=== PATIENT | female | born 1985 | race African-American/Black ===

== ENCOUNTER 2019-01-31 17:58 | Emergency (ER) | payer MEDICAID ==
[~2019-01-31] VITALS: Ht 165.1 cm; Wt 81.6 kg
[~2019-01-31 17:58] MED LIST: LOSA25TA25 PO
[2019-01-31] MEDS ORDERED: MORPHINE SULFATE 4 MG/ML, 1ML ONE (18:47)
[2019-01-31] MEDS ORDERED: ONDANSETRON 2MG/ML, 2ML ONE (18:47)
--- NOTE | 2019-01-31 18:58 | NUR ---
THIS IS 34Y F THAT COMES IN FOR RIGHT UPPER QUAD PAIN FOR 3 DAYS. PT STS PAIN GOT WORSE THIS EVENING 10/11. PT STS SHE HAS HAD NO DESIRE TO EAT FOR THE LAST THREE DAYS. PT DENIES FEVER AND VOMITING. PT CONNECTED TO MONITORS, VSS, CALL LIGHT IN REACH. SON AT BEDSIDE
[2019-01-31] MEDS ORDERED: SODIUM CHLORIDE FLUSH 10ML SYR IVF ONE (19:00)
[2019-01-31] MEDS ORDERED: ONDANSETRON 2MG/ML, 2ML IVPush ONE (19:00)
[2019-01-31] MEDS ORDERED: MORPHINE SULFATE 4 MG/ML, 1ML IVPush PRN (19:00)
--- NOTE | 2019-01-31 19:00 | NUR ---
PT UP TO RESTROOM FOR URINE SAMPLE AT THIS TIME
--- NOTE | 2019-01-31 19:12 | NUR ---
TASK RN: IV PLACED, LABS DRAWN AND PT TAKEN TO US. PT STATES ABLE TO WAIT FOR PAIN MEDS UNTIL AFTER IMAGING. PAIN FLUCTUATES AND IS LOW AT THIS TIME
[2019-01-31 19:22] LABS: MICROSCOPIC AUTO
[2019-01-31 19:22] LABS: BASOPHILS # (AUTO) 0.01 x10^3/uL (0-0.1); BASOPHILS % (AUTO) 0 % (0-1); EOSINOPHILS # (AUTO) 0.04 x10^3/uL (0-0.4); EOSINOPHILS % (AUTO) 1 % (1-7); LYMPHOCYTES # (AUTO) 0.84 x10^3/uL (1-3.4); LYMPHOCYTES % (AUTO) 10 % (22-44); MD NO; MEAN CORPUSCULAR HEMOGLOBIN 26.1 pg (27.0-34.8); MEAN CORPUSCULAR HGB CONC 32.2 g/dL (32.4-35.8); MEAN CORPUSCULAR VOLUME 81.2 fL (80-100); MEAN PLATELET VOLUME 6.8 fL (7.4-10.4); MONOCYTES # (AUTO) 0.65 x10^3/uL (0.2-0.8); MONOCYTES % (AUTO) 8 % (2-9); NEUTROPHILS # (AUTO) 6.65 x10^3/uL (1.8-6.8); NEUTROPHILS % (AUTO) 81 % (42-75); PLATELET COUNT 393 x10^3/uL (130-400); RED BLOOD COUNT 4.74 x10^6/uL (3.82-5.3); RED CELL DISTRIBUTION WIDTH 13.5 % (9.6-15.2)
[2019-01-31 19:24] LABS: CULTURE INDICATED? NO
[2019-01-31 19:29] LABS: ALANINE AMINOTRANSFERASE 31 U/L (12-78); ALBUMIN 3.7 g/dL (3.4-5.0); ANION GAP 3 mmol/L (5-15); CALCIUM 8.7 mg/dL (8.5-10.1); CHLORIDE 108 mmol/L (98-107)
[2019-01-31 19:34] LABS: ALKALINE PHOSPHATASE 78 U/L (45-117); BILIRUBIN,TOTAL 0.4 mg/dL (0.2-1.0); CREATININE 0.77 mg/dL (0.55-1.02)
--- NOTE | 2019-01-31 19:46 | NUR ---
PT BACK FROM IMAGING AT THIS TIME. PT MEDICATED PER MAR.
--- NOTE | 2019-01-31 19:53 | NUR ---
ALL RESULTS BACK AT THIS TIME, CHART FOR RECHECK
[2019-01-31 20:46] VITALS: BP 113/69
== END 2019-01-31 20:47 | disposition home or self-care (01) ==
LOC: ED 18:16
DX: R10.11 Right upper quadrant pain (principal); K76.0 Fatty (change of) liver, not elsewhere classified; I10 Essential (primary) hypertension
CPT/HCPCS: 36415; 76700; 80053; 81001; 83690; 84703; 85025; 96374; 96375; 99284; J2270; J2405